=== PATIENT | female | born 1940 | race Two or more races ===

== ENCOUNTER 2018-08-23 10:49 | Emergency (ER) | payer MEDICARE ==
[~2018-08-23] VITALS: Ht 162.6 cm; Wt 52.8 kg
--- NOTE | 2018-08-23 11:10 | NUR ---
[employer]ER: PT FROM LOBBY TO ROOM AT THIS TIME.
--- NOTE | 2018-08-23 11:15 | NUR ---
PT TO ED WITH [id number], HX OF ASTHMA AND RECENT HOSPITALIZATION FOR PNA. 86% ON RA ON 2L NC SAT 97% NOW. [facility] AT BEDSIDE. CALL LIGHT WITHIN REACH
[2018-08-23] MEDS ORDERED: methylPREDNISolone SOD SUCC 125 MG/2 ML IVP ONE (11:30)
[2018-08-23] MEDS ORDERED: SODIUM CHLORIDE FLUSH 10ML SYR IVF ONE (11:30)
[2018-08-23] MEDS ORDERED: ALBUTEROL/IPRATROPIUM 2.5MG/0.5MG, 3 ML NPPB ONE ×2 (11:30→13:00)
[2018-08-23] MEDS ORDERED: ALBUTEROL/IPRATROPIUM 2.5MG/0.5MG, 3 ML ONE ×2 (11:37→13:05)
--- NOTE | 2018-08-23 11:46 | NUR ---
RT AT BEDSIDE
--- NOTE | 2018-08-23 12:02 | NUR ---
PT RESTING IN [facility] WITH TEJAS AT BEDSIDE. NAD. CALL LIGHT WITHIN REACH. AWAITING LAB RESULTS
[2018-08-23] MEDS ORDERED: methylPREDNISolone SOD SUCC 125 MG/2 ML ONE (12:09)
[2018-08-23 12:20] LABS: BASOPHILS # (AUTO) 0.04 x10^3/uL (0-0.1); BASOPHILS % (AUTO) 0 % (0-1); EOSINOPHILS # (AUTO) 0.13 x10^3/uL (0-0.4); EOSINOPHILS % (AUTO) 2 % (1-7); LYMPHOCYTES # (AUTO) 1.04 x10^3/uL (1-3.4); LYMPHOCYTES % (AUTO) 12 % (22-44); MD NO; MEAN CORPUSCULAR HEMOGLOBIN 30.8 pg (27.0-34.8); MEAN CORPUSCULAR HGB CONC 32.7 g/dL (32.4-35.8); MEAN PLATELET VOLUME 7.6 fL (7.4-10.4); MONOCYTES # (AUTO) 0.55 x10^3/uL (0.2-0.8); MONOCYTES % (AUTO) 6 % (2-9); NEUTROPHILS # (AUTO) 7.21 x10^3/uL (1.8-6.8); NEUTROPHILS % (AUTO) 80 % (42-75); PLATELET COUNT 336 x10^3/uL (130-400); RED BLOOD COUNT 4.29 x10^6/uL (3.82-5.3)
[2018-08-23 12:25] LABS: INTERNATIONAL NORMALIZED RATIO 0.97 (0.93-1.1); PROTHROMBIN TIME 10.2 Seconds (9.6-11.5)
[2018-08-23 12:28] LABS: CHLORIDE 105 mmol/L (98-107)
[2018-08-23 12:39] LABS: ALANINE AMINOTRANSFERASE 40 U/L (12-78); ALBUMIN 2.9 g/dL (3.4-5.0); ALKALINE PHOSPHATASE 82 U/L (45-117); ANION GAP 5 mmol/L (5-15); BILIRUBIN,TOTAL 0.4 mg/dL (0.2-1.0); CALCIUM 8.2 mg/dL (8.5-10.1); CREATININE 0.46 mg/dL (0.55-1.02); TOTAL PROTEIN 6.6 g/dL (6.4-8.2); TROPONIN I < 0.015 ng/mL (0.000-0.045)
--- NOTE | 2018-08-23 13:31 | NUR ---
pt ambulated to bathroom and in [place] with steady gait off O2 after 2nd neb tx.
[2018-08-23 14:08] VITALS: BP 128/80
--- NOTE | 2018-08-23 14:31 | NUR ---
pt leaving hospital shakira lou paperwork given
--- NOTE | 2018-08-23 14:40 | NUR ---
PT REQUESTING REFILL FOR ALBUTERO ALSO, NOT AVAILABLE AT THIS TIME
== END 2018-08-23 15:33 | disposition home or self-care (01) ==
LOC: ED 14:29
DX: J45.41 Moderate persistent asthma with (acute) exacerbation (principal); J18.9 Pneumonia, unspecified organism; R09.02 Hypoxemia
CPT/HCPCS: 36415; 71045; 80053; 83880; 84484; 85025; 85610; 85730; 93005; 94640; 99284; J2930; J7620